=== PATIENT | male | born 1980 | race Caucasian/White ===

== ENCOUNTER 2019-07-07 10:06 | Emergency (ER) | payer MEDICAID ==
[~2019-07-07] VITALS: Ht 182.9 cm; Wt 75.6 kg
[2019-07-07] MEDS ORDERED: DIPH,PERTUSS(ACELL),TET VAC/PF 0.5 ML IM-VACC ONE ×2 (11:00→11:25)
--- NOTE | 2019-07-07 11:17 | NUR ---
USER EXPERIENCE ARCHITECT: PT AMBULATORY TO ROOM FROM LOBBY
[2019-07-07 11:57] LABS: BASOPHILS # (AUTO) 0.04 x10^3/uL (0-0.1); BASOPHILS % (AUTO) 0 % (0-1); EOSINOPHILS # (AUTO) 0.06 x10^3/uL (0-0.4); EOSINOPHILS % (AUTO) 1 % (1-7); LYMPHOCYTES # (AUTO) 1.48 x10^3/uL (1-3.4); LYMPHOCYTES % (AUTO) 17 % (22-44); MD NO; MEAN CORPUSCULAR HEMOGLOBIN 34.1 pg (27.5-34.5); MEAN CORPUSCULAR VOLUME 100.2 fL (81-97); MEAN PLATELET VOLUME 7.1 fL (7.4-10.4); MONOCYTES # (AUTO) 0.83 x10^3/uL (0.2-0.8); MONOCYTES % (AUTO) 10 % (2-9); NEUTROPHILS # (AUTO) 6.33 x10^3/uL (1.8-6.8); NEUTROPHILS % (AUTO) 73 % (42-75); PLATELET COUNT 265 x10^3/uL (130-400); RED BLOOD COUNT 4.63 x10^6/uL (4.38-5.82); RED CELL DISTRIBUTION WIDTH 14.2 % (9.4-14.8)
[2019-07-07 12:05] LABS: ANION GAP 12 mmol/L (5-15); CALCIUM 9.2 mg/dL (8.5-10.1); CHLORIDE 103 mmol/L (98-107); CREATININE 0.84 mg/dL (0.7-1.3)
[2019-07-07] MEDS ORDERED: LIDOCAINE-MPF 1%, 2ML ONE (12:28)
[2019-07-07] MEDS ORDERED: CEFTRIAXONE 1,000 MG ONE (12:28)
[2019-07-07 12:34] VITALS: BP 143/100
--- NOTE | 2019-07-07 12:36 | NUR ---
TASK RN: PT MEDICATED PER MAR, VITALS UPDATED. PT STATES HAVING PAIN IN L HAND, REQUESTING PAIN MEDICATION, ERPROVIDER UPDATED
[2019-07-07] MEDS ORDERED: OXYcodone/APAP 5/325MG TABLET PO ONE (13:00)
[2019-07-07] MEDS ORDERED: CEFTRIAXONE 1,000 MG IM ONE (13:00)
[2019-07-07] MEDS ORDERED: OXYcodone/APAP 5/325MG TABLET ONE (13:04)
--- NOTE | 2019-07-07 13:16 | NUR ---
ASSUMED CARE AFTER RECEIVING REPORT FROM GLENN ALVAREZ
== END 2019-07-07 13:29 | disposition home or self-care (01) ==
LOC: ED 11:47
DX: S60.512A Abrasion of left hand, initial encounter (principal); L03.113 Cellulitis of right upper limb; L03.114 Cellulitis of left upper limb; F17.200 Nicotine dependence, unspecified, uncomplicated; X58.XXXA Exposure to other specified factors, initial encounter; Y93.89 Activity, other specified; Y92.009 Unspecified place in unspecified non-institutional (private) residence as the place of occurrence of the external cause; Y99.8 Other external cause status
CPT/HCPCS: 36415; 73130; 80048; 83605; 85025; 87040; 90471; 90715; 96372; 99284; J0696